=== PATIENT | male | born 1995 | race Caucasian/White ===

== ENCOUNTER 2019-04-30 20:49 | Emergency (ER) | payer BC ==
[~2019-04-30] VITALS: Ht 193 cm; Wt 93.0 kg
--- NOTE | 2019-04-30 20:54 | NUR ---
ED Nurse Note: pt brought in by [facility] from home for substance abuse possible heroin or fentanyl pt states he doesn't know exactly which one he took. pt AA&ox4, gcs=15, skin warm and dry, resp even and unlabored on RA, -n/v/d, ambulates w/ steady gait, vss. will cont monitor. pt was given one narcan on the field by medic.
[2019-04-30 20:57] VITALS: BP 135/69
--- NOTE | 2019-04-30 21:10 | Emergency Room Report ---
History of Present Illness General Chief Complaint: Substance Abuse Source: Patient Present Illness HPI Patient is a 24-year-old male brought in by EMS after reported opiate overdose. Patient had been given Narcan in the field. He reports having used fentanyl approximately 7 PM. He denies any current symptoms. He reports having prior history of needle to his right upper extremity. Allergies: Coded Allergies: No Known Allergies (Unverified , 04/30/19) Patient History Past Medical History: see triage record Reviewed Nursing Documentation: PMH: Agreed; PSxH: Agreed Nursing Documentation-PMH Hx Cardiac Problems: No - IVDU Review of Systems All Other Systems: negative except mentioned in HPI Physical Exam Vital Signs Date Time Temp Pulse Resp B/P (MAP) Pulse Ox O2 Delivery O2 Flow Rate FiO2 04/30/19 20:49 98.2 108 18 137/72 (93) 98 Room Air Sp02 EP Interpretation: reviewed, normal General Appearance: normal inspection, well appearing, no apparent distress, alert, GCS 15 Head: atraumatic ENT: normal ENT inspection, hearing grossly normal, normal voice Neck: normal inspection, full range of motion, supple, no bony tend Respiratory: normal inspection, lungs clear, normal breath sounds, no respiratory distress, no retraction, no wheezing Cardiovascular #1: regular rate, rhythm, no edema Gastrointestinal: normal inspection, normal bowel sounds, non tender, soft, no guarding, no hernia Genitourinary: no CVA tenderness Musculoskeletal: normal inspection, back normal, normal range of motion Neurologic: normal inspection, alert, oriented x3, responsive, tax manager cpa III-XII nml as tested, speech normal Psychiatric: normal inspection, judgement/insight normal, mood/affect normal Medical Decision Making Diagnostic Impression: Primary Impression: Overdose Additional Impression: Retained foreign body Last Vital Signs Date Time Temp Pulse Resp B/P (MAP) Pulse Ox O2 Delivery O2 Flow Rate FiO2 04/30/19 20:57 108 18 Room Air 04/30/19 20:57 97.9 135/69 98 Status: improved Disposition: HOME, SELF-CARE Condition: Stable Scripts Naloxone HCl (Narcan) 4 Mg Edna 4 MG NS ONCE for overdose, #1 SPRAY Prov: Kevan Gordon MD 04/30/19 Kevan Gordon MD Apr 30, 2019 21:10
[2019-04-30 21:46] VITALS: BP 117/71
--- NOTE | 2019-04-30 22:22 | Diagnostic Imaging Report ---
EXAM: XR Chest, 1 View CLINICAL HISTORY: CP TECHNIQUE: Frontal view of the chest. COMPARISON: No relevant prior studies available. FINDINGS: Lungs: Unremarkable. The lungs are clear. Pleural space: Unremarkable. No pneumothorax. Heart: Unremarkable. No cardiomegaly. Mediastinum: Unremarkable. Bones/joints: Unremarkable. IMPRESSION: Normal chest x-ray.
--- NOTE | 2019-04-30 22:42 | Diagnostic Imaging Report ---
EXAM: XR Right Elbow Complete, 3 or More Views CLINICAL HISTORY: Concern for foreign body. Needle. TECHNIQUE: Frontal, lateral and oblique views of the right elbow. COMPARISON: No relevant prior studies available. FINDINGS: Bones/joints: Unremarkable. No acute fracture. No dislocation. Soft tissues: 4 mm possible needle fragment in the soft tissues of the antecubital fossa. IMPRESSION: 4 mm possible needle fragment in the soft tissues of the antecubital fossa.
[2019-04-30] MEDS ORDERED: NARCAN4 MG NS (22:51)
--- NOTE | 2019-04-30 22:57 | NUR ---
ED Nurse Note: pt cleared to be d/c per ERMD, pt discharge and aftercare instruction provided w/ prescription, pt education done via discussion and handout, pt advised to follow up with pcp or return to ed if changes in condition, pt given list of referral for sober living and drug abuse, pt advised to stop doing drugs or drink alcohol. pt verbalized understanding and agrees with plan, vss, ambulatory w/ steady gait, left w/ all belongings.
[2019-04-30 22:58] VITALS: BP 116/86
== END 2019-04-30 22:58 | disposition home or self-care (01) ==
LOC: EDBD 20:49 → EMR 21:20
DX: T40.2X1A Poisoning by other opioids, accidental (unintentional), initial encounter (principal); M79.5 Residual foreign body in soft tissue; R07.9 Chest pain, unspecified; Y92.9 Unspecified place or not applicable
CPT/HCPCS: 71045; 99284